=== PATIENT | female | born 1975 | race Caucasian/White ===

== ENCOUNTER 2016-05-15 19:32 | Emergency (ER) | payer BC ==
[~2016-05-15] VITALS: Ht 172.7 cm; Wt 89.4 kg
[~2016-05-15 19:32] MED LIST: CIPR250S2; DOCU-80
[2016-05-15 19:42] VITALS: BP 150/56
[2016-05-15 19:51] LABS: Basophils # (auto) 0 uL; Basophils % (auto) 0.3 % (0.0-2.0); Eosinophils # (auto) 0.1 uL; Eosinophils % (auto) 0.7 % (0.0-7.0); Hematocrit 46.7 % (36.0-46.0); Hemoglobin 15.3 g/dL (12.2-16.2); Lymphocytes # (auto) 3.7 uL; Lymphocytes % (auto) 28.9 % (10.0-50.0); Mean Corpuscular Hemoglobin 29.8 pg (28.0-32.0); Mean Corpuscular Hgb Conc. 32.7 g/dL (32.0-36.0); Mean Platelet Volume 8.4 fL (7.4-10.4); Monocytes # (auto) 0.7 uL; Monocytes % (auto) 5.4 % (0.0-12.0); Neutrophils # (auto) 8.3 uL; Neutrophils % (auto) 64.7 % (37.0-80.0); Platelet Count (auto) 274 10^3/uL (140-450); Red Cell Distribution Width 12.9 % (11.6-16.0); White Blood Cell 12.9 10^3/uL (4.4-10.8)
[2016-05-15 20:12] LABS: Lactic Acid 3.3 mmol/L (0.4-2.0)
[2016-05-15 20:13] LABS: Albumin 4.3 g/dL (3.4-5.0); BUN/Creatinine Ratio 8.9; Calcium 9.2 mg/dL (8.5-10.1); Potassium 4.4 mmol/L (3.5-5.1)
[2016-05-15 20:14] LABS: REFLEX LACTIC ACID YES OR NO YES
[2016-05-15 20:15] LABS: INR 0.98 (0.9-1.15); Partial Thromboplastin Time 24.5 sec (22.64-33.71); Prothrombin Time 10.1 sec (9.37-12.3)
[2016-05-15 20:16] LABS: Bilirubin, Total 0.6 mg/dL (0.2-1.0)
[2016-05-15] MEDS ORDERED: LORazepam 2MG/ML-1ML VIAL IV ONE ×2 (21:15→23:00)
[2016-05-15 22:14] LABS: Lactic Acid 2.1 mmol/L (0.4-2.0)
[2016-05-15 22:16] LABS: REFLEX LACTIC ACID YES OR NO NO
[2016-05-15] MEDS ORDERED: LORazepam 2MG/ML-1ML VIAL ONE (22:27)
== END 2016-05-15 23:55 | disposition home or self-care (01) ==
LOC: ER 19:33
DX: R27.0 Ataxia, unspecified (principal); F41.9 Anxiety disorder, unspecified; R51 Headache; F17.210 Nicotine dependence, cigarettes, uncomplicated
CPT/HCPCS: 36415; 70450; 71010; 72125; 80053; 83605; 84484; 85025; 85610; 85730; 96374; 96376; 99285; J2060